=== PATIENT | male | born 1995 | race Caucasian/White ===

== ENCOUNTER 2023-07-01 19:30 | Emergency (ER) | payer BC ==
[2023-07-01 19:53] VITALS: TEMP 98.8
--- NOTE | 2023-07-01 20:21 | ERPHSYRPT ---
- History of Present Illness Time Seen by Provider: 07/01/23 20:21 Historian: patient Exam Limitations: no limitations Patient Subjective Stated Complaint: pt states that he began to have chest pain at 7. pt states that he has anxiety and doesn't know if it is that or not Triage Nursing Assessment: pt ambulated into the er; pt is axo x4; c/o chest pain; pt states 1/10 pain to chest; clear apical heart tone present with mumur present; clear lung sounds in all lobes; strong daniel radial pulses; strong daniel pedal pulse; no edema present; vitals wnl; no respiratory distress present; vitals wnl Physician History: The patient, with a history of thyroid issues and anxiety, presents with chest discomfort that started around 7pm while riding a buggy around the yard with his kids. The discomfort is located on the sternum and was tender to touch earlier. The patient also reports increased anxiety over the past month, which he attributes to recent family stress and possibly his thyroid issues. He had stopped his thyroid medication for a period but has been back on it for about four weeks. He is due for a thyroid level check the week after . In addition to his thyroid issues, the patient has a history of anxiety for which he was previously on Zoloft and Buspar. He stopped these medications because he felt emotionally flat and was not experiencing sen. He has tried Lexapro in the past but had similar issues. The patient also mentions a past incident of electrocution about a year and a half ago, which caused a temporary arrhythmia and elevated muscle enzymes in his blood. He also has a congenital heart murmur. Timing/Duration: today Activities at Onset: rest Quality: sharpness, stabbing Location: substernal Chest Pain Radiation: no radiation Severity of Pain-Max: severe Severity of Pain-Current: mild Modifying Factors: Improves With: nothing. Worsens With: palpation Associated Symptoms: palpitations, No nausea, No vomiting, No shortness of breath, No cough, No hurts to breathe, No fever Prior Chest Pain/Cardiac Workup: no prior chest pain Nitro Today/Relief: no nitro taken today Aspirin Treatment Today: no aspirin today Allergies/Adverse Reactions: No Known Drug Allergies Allergy (Unverified 07/01/23 19:36) Home Medications: Levothyroxine Sodium [Unithroid] 75 mcg PO DAILY 07/01/23 [History] Hx Tetanus, Diphtheria Vaccination/Date Given: Yes Hx Influenza Vaccination/Date Given: No Hx Pneumococcal Vaccination/Date Given: No Immunizations Up to Date: No Travel Risk - International Travel Have you traveled outside of the country in past 3 weeks: No - Emerging Infectious Disease Are you exhibiting symptoms associated with any current EIDs: No - Review of Systems All Other Systems: Reviewed and Negative - Past Medical History Pertinent Past Medical History: Yes Endocrine Medical History: Hypothyroidism Psycho-Social History: Anxiety - Past Surgical History Past Surgical History: No - Social History Smoking Status: Current every day smoker Exposure to second hand smoke: Yes Drug Use: none - Nursing Vital Signs Nursing Vital Signs: Initial Vital Signs Temperature 98.8 F 07/01/23 19:35 Pulse Rate 93 H 07/01/23 19:35 Respiratory Rate 20 07/01/23 19:35 Blood Pressure 136/83 07/01/23 19:35 O2 Sat by Pulse Oximetry 100 07/01/23 19:35 Pain Scale Pain Intensity 1 - Physical Exam General Appearance: no apparent distress, anxiety Eye Exam: eyes nml inspection Ears, Nose, Throat Exam: normal ENT inspection Neck Exam: normal inspection, non-tender, full range of motion Respiratory Exam: normal breath sounds, lungs clear, airway intact, No chest tenderness, No respiratory distress Cardiovascular Exam: regular rate/rhythm, murmur, capillary refill <2 sec Back Exam: normal inspection, No CVA tenderness, No vertebral tenderness, No point tenderness Extremity Exam: normal inspection, No swelling Neurologic Exam: alert, oriented x 3, cooperative Skin Exam: normal color, warm, dry, No rash SpO2 Interpretation: normal SpO2: 100 O2 Delivery: Room Air - Course Nursing assessment & vital signs reviewed: Yes EKG Interpreted by Me: RATE (94), Sinus Rhythm, NORMAL AXIS, NORMAL INTERVALS, NORMAL QRS - Radiology Exams Chest X-ray Interpretation: Interpreted by me, Negative Ordered Tests: Active Orders 24 hr Category Date Time Status CHEST 1 VIEW (PORTABLE) Stat Exams 07/01/23 20:35 Taken CBC W DIFF Stat Lab 07/01/23 20:50 Completed CMP Stat Lab 07/01/23 20:50 Completed D-DIMER QUANTITATIVE Stat Lab 07/01/23 20:50 Completed Erythrocyte Sedimentation Rate Stat Lab 07/01/23 20:50 Completed FREE TRIODOTHYRONINE Stat Lab 07/01/23 21:50 Completed Lactic Acid Stat Lab 07/01/23 20:34 Completed MAGNESIUM Stat Lab 07/01/23 20:50 Completed TROPONIN Q4H Lab 07/01/23 20:50 Completed TSH [TSH, 3RD Generation] Stat Lab 07/01/23 20:50 Completed Medication Summary Discontinued Medications Generic Name Dose Route Start Last Admin Trade Name Buddy PRN Reason Stop Dose Admin Alprazolam 1 mg 07/01/23 20:45 07/01/23 20:47 Alprazolam 0.5 Mg Tablet PO 07/01/23 20:46 1 mg STAT ONE Administration Alprazolam Confirm 07/01/23 20:46 Alprazolam 0.5 Mg Tablet Administered 07/01/23 20:47 Dose 1 mg .ROUTE .STK-MED ONE Bupropion HCl 150 mg 07/01/23 20:36 07/01/23 20:59 Bupropion Hcl 150 Mg Tablet Xl PO 07/01/23 20:37 150 mg ONCE ONE Administration Lorazepam 1 mg 07/01/23 20:34 07/01/23 20:38 Lorazepam 2 Mg/1 Ml 2 Mg Vial IV 07/01/23 20:35 Not Given STAT ONE Lab/Rad Data: Laboratory Result Diagrams 07/01/23 20:50 07/01/23 20:50 Laboratory Results 07/01/23 07/01/23 07/01/23 Range/Units 21:50 20:50 20:50 WBC (4.0-10.5) x10^3/uL RBC (4.1-5.6) x10^6/uL Hgb (12.5-18.0) g/dL Hct (42-50) % MCV (78-100) fL MCH (26-32) pg MCHC (32-36) g/dL RDW (11.5-14.0) % Plt Count (150-450) x10^3/uL MPV (7.5-11.0) fL Gran % (36.0-66.0) % Immature Gran % (Auto) (0.00-0.4) % Nucleat RBC Rel Count (0.00-0.1) % Eos # (Auto) (0-0.5) x10^3/uL Immature Gran # (Auto) (0.00-0.03) x10^3u/L Absolute Lymphs (auto) (1.0-4.6) x10^3/uL Absolute Monos (auto) (0.0-1.3) x10^3/uL Absolute Nucleated RBC (0.00-0.01) x10^3u/L Lymphocytes % (24.0-44.0) % Monocytes % (0.0-12.0) % Eosinophils % (0.00-5.0) % Basophils % (0.0-0.4) % Absolute Granulocytes (1.4-6.9) x10^3/uL Basophils # (0-0.4) x10^3/uL ESR (0-15) mm/hr D-Dimer (0.0-0.50) mg/L Sodium (135-145) mmol/L Potassium (3.5-5.1) mmol/L Chloride (98-107) mmol/L Carbon Dioxide (22-30) mmol/L Anion Gap (5-15) MEQ/L BUN (9-20) mg/dL Creatinine (0.66-1.25) mg/dL Estimated GFR ML/MIN Glucose (74-106) mg/dL Lactic Acid (0.4-2.0) Calcium (8.4-10.2) mg/dL Magnesium (1.6-2.3) mg/dL Total Bilirubin (0.2-1.3) mg/dL AST (17-59) U/L ALT (0-50) U/L Alkaline Phosphatase (38-126) U/L Troponin I < 0.012 (0.000-0.033) ng/mL Serum Total Protein (6.3-8.2) g/dL Albumin (3.5-5.0) g/dL Free T3 pg/mL 4.32 (2.77-5.27) pg/mL TSH 3rd Generation 0.024 L (0.470-4.680) mIU/L 07/01/23 07/01/23 07/01/23 Range/Units 20:50 20:50 20:50 WBC 9.3 (4.0-10.5) x10^3/uL RBC 5.09 (4.1-5.6) x10^6/uL Hgb 15.4 (12.5-18.0) g/dL Hct 44.8 (42-50) % MCV 88.0 (78-100) fL MCH 30.3 (26-32) pg MCHC 34.4 (32-36) g/dL RDW 12.0 (11.5-14.0) % Plt Count 282 (150-450) x10^3/uL MPV 10.7 (7.5-11.0) fL Gran % 71.1 H (36.0-66.0) % Immature Gran % (Auto) 0.2 (0.00-0.4) % Nucleat RBC Rel Count 0.0 (0.00-0.1) % Eos # (Auto) 0.10 (0-0.5) x10^3/uL Immature Gran # (Auto) 0.02 (0.00-0.03) x10^3u/L Absolute Lymphs (auto) 2.02 (1.0-4.6) x10^3/uL Absolute Monos (auto) 0.52 (0.0-1.3) x10^3/uL Absolute Nucleated RBC 0.00 (0.00-0.01) x10^3u/L Lymphocytes % 21.6 L (24.0-44.0) % Monocytes % 5.6 (0.0-12.0) % Eosinophils % 1.1 (0.00-5.0) % Basophils % 0.4 (0.0-0.4) % Absolute Granulocytes 6.64 (1.4-6.9) x10^3/uL Basophils # 0.04 (0-0.4) x10^3/uL ESR 10 (0-15) mm/hr D-Dimer 0.22 (0.0-0.50) mg/L Sodium 140 (135-145) mmol/L Potassium 3.7 (3.5-5.1) mmol/L Chloride 108 H (98-107) mmol/L Carbon Dioxide 23 (22-30) mmol/L Anion Gap 13.0 (5-15) MEQ/L BUN 8 L (9-20) mg/dL Creatinine 0.87 (0.66-1.25) mg/dL Estimated GFR 121.3 ML/MIN Glucose 113 H (74-106) mg/dL Lactic Acid (0.4-2.0) Calcium 9.4 (8.4-10.2) mg/dL Magnesium 2.0 (1.6-2.3) mg/dL Total Bilirubin 0.60 (0.2-1.3) mg/dL AST 31 (17-59) U/L ALT 26 (0-50) U/L Alkaline Phosphatase 61 (38-126) U/L Troponin I (0.000-0.033) ng/mL Serum Total Protein 8.3 H (6.3-8.2) g/dL Albumin 4.9 (3.5-5.0) g/dL Free T3 pg/mL (2.77-5.27) pg/mL TSH 3rd Generation (0.470-4.680) mIU/L 07/01/23 Range/Units 20:34 WBC (4.0-10.5) x10^3/uL RBC (4.1-5.6) x10^6/uL Hgb (12.5-18.0) g/dL Hct (42-50) % MCV (78-100) fL MCH (26-32) pg MCHC (32-36) g/dL RDW (11.5-14.0) % Plt Count (150-450) x10^3/uL MPV (7.5-11.0) fL Gran % (36.0-66.0) % Immature Gran % (Auto) (0.00-0.4) % Nucleat RBC Rel Count (0.00-0.1) % Eos # (Auto) (0-0.5) x10^3/uL Immature Gran # (Auto) (0.00-0.03) x10^3u/L Absolute Lymphs (auto) (1.0-4.6) x10^3/uL Absolute Monos (auto) (0.0-1.3) x10^3/uL Absolute Nucleated RBC (0.00-0.01) x10^3u/L Lymphocytes % (24.0-44.0) % Monocytes % (0.0-12.0) % Eosinophils % (0.00-5.0) % Basophils % (0.0-0.4) % Absolute Granulocytes (1.4-6.9) x10^3/uL Basophils # (0-0.4) x10^3/uL ESR (0-15) mm/hr D-Dimer (0.0-0.50) mg/L Sodium (135-145) mmol/L Potassium (3.5-5.1) mmol/L Chloride (98-107) mmol/L Carbon Dioxide (22-30) mmol/L Anion Gap (5-15) MEQ/L BUN (9-20) mg/dL Creatinine (0.66-1.25) mg/dL Estimated GFR ML/MIN Glucose (74-106) mg/dL Lactic Acid 1.5 (0.4-2.0) Calcium (8.4-10.2) mg/dL Magnesium (1.6-2.3) mg/dL Total Bilirubin (0.2-1.3) mg/dL AST (17-59) U/L ALT (0-50) U/L Alkaline Phosphatase (38-126) U/L Troponin I (0.000-0.033) ng/mL Serum Total Protein (6.3-8.2) g/dL Albumin (3.5-5.0) g/dL Free T3 pg/mL (2.77-5.27) pg/mL TSH 3rd Generation (0.470-4.680) mIU/L - Progress Progress: improved Air Movement: good Progress Note: Vital signs within normal limits. Chest x-ray normal. Labs showed a TSH of 0.024 and a T3 of 4.3. EKG, troponin, D-dimer, CBC, CMP all within normal limits. Patient given 1 mg Xanax which greatly improved his symptoms. Patient also started on Wellbutrin 150 mg extended release today. Patient advised to decrease his dose of levothyroxine 50 mcg daily and schedule follow-up with his nurse practitioner for follow-up lab evaluation. I will send in Wellbutrin to the pharmacy for him to start taking on a daily basis. I will also send hydr oxyzine to be used as needed for anxiety. Blood Culture(s) Obtained: No Antibiotics given: No Counseled pt/family regarding: lab results, diagnosis, need for follow-up, rad results Medical Desision Making - Diagnostic Testing Diagnostic test were ordered, analyzed, and reviewed by me: Yes Radiological Interpretation: Interpreted by me - Risk of complications The pt has a mod risk of morbidity or mortality based on: Need for prescription drug management - Departure Departure Disposition: Home Clinical Impression: Hyperthyroidism determined by thyroid function test, Anxiety Condition: Good Critical Care Time: No Referrals: CARLOS JOHN MD [Primary Care Provider] - Follow up/PCP as directed BOB BERNARD NP [NON-STAFF PHY W/O PRIVILEGES] - Follow up/PCP as directed Instructions: Hyperthyroidism (overactive thyroid) Prescriptions: Levothyroxine Sodium 25 Mcg [Synthroid 25 Mcg] 50 mcg PO DAILY 30 Days #60 tablet hydrOXYzine pamoate [Vistaril] 25 mg PO TID PRN 30 Days #90 cap PRN Reason: Anxiety Bupropion HCl Xl 150 mg [Wellbutrin XL 150 MG] 150 mg PO DAILY #30 tablet
[2023-07-01] MEDS: Ativan 2 MG/1 ML VIAL IV ONE (20:38)
[2023-07-01] MEDS ORDERED: xanAX 0.5 MG ONE (20:46)
[2023-07-01] MEDS: xanAX 0.5 MG PO ONE (20:47)
[2023-07-01 20:57] LABS: Absolute Neutrophil Ct (ANC) 6.64 x10^3/uL (1.4-6.9); BASOPHIL % 0.4 % (0.0-0.4); Basophil (Absolute #) 0.04 x10^3/uL (0-0.4); Eosinophil % 1.1 % (0.00-5.0); Hematocrit 44.8 % (42-50); Hemoglobin 15.4 g/dL (12.5-18.0); IMMATURE GRAN # 0.02 x10^3u/L (0.00-0.03); IMMATURE GRAN % 0.2 % (0.00-0.4); Lymphocyte (Absolute #) 2.02 x10^3/uL (1.0-4.6); Lymphocytes % 21.6 % (24.0-44.0); Mean Corpuscular Hemoglobin 30.3 pg (26-32); Mean Corpuscular Hgb Concent. 34.4 g/dL (32-36); Mean Platelet Volume 10.7 fL (7.5-11.0); Monocyte (Absolute #) 0.52 x10^3/uL (0.0-1.3); Monocytes % 5.6 % (0.0-12.0); Neutrophil % 71.1 % (36.0-66.0); Platelet Count 282 x10^3/uL (150-450); Red Blood Count 5.09 x10^6/uL (4.1-5.6); White Blood Count 9.3 x10^3/uL (4.0-10.5)
[2023-07-01] MEDS: Wellbutrin XL 150 MG PO ONE (20:59)
[2023-07-01 21:03] VITALS: RESP 18
[2023-07-01 21:12] LABS: ALBUMIN 4.9 g/dL (3.5-5.0); BILIRUBIN,TOTAL 0.6 mg/dL (0.2-1.3); Calcium 9.4 mg/dL (8.4-10.2); Creatinine 1 0.87 mg/dL (0.66-1.25); EST GLOMERULAR FILTRATION RATE 121.3 ML/MIN; Potassium 3.7 mmol/L (3.5-5.1); Total Protein 8.3 g/dL (6.3-8.2)
[2023-07-01 21:29] LABS: Erythrocyte Sedimentation Rate 10 mm/hr (0-15)
[2023-07-01 22:13] VITALS: BP 141/86; PULSE 79
[2023-07-01 22:21] VITALS: O2SAT 100
--- NOTE | 2023-07-02 06:47 | XRAY ---
Indication: Chest pain. Comparison: March 23, 2006 Portable apical lordotic chest demonstrates normal heart, lungs, and bony thorax.
== END 2023-07-01 22:30 | disposition home or self-care (01) ==
LOC: ED 19:30
DX: E05.90 Thyrotoxicosis, unspecified without thyrotoxic crisis or storm (principal); F41.9 Anxiety disorder, unspecified; R07.9 Chest pain, unspecified; Z79.899 Other long term (current) drug therapy; Z72.0 Tobacco use
CPT/HCPCS: 36415; 71045; 80053; 83605; 83735; 84443; 84481; 84484; 85025; 85379; 85652; 99283; A9270-GY

== ENCOUNTER 2023-09-17 01:55 | Emergency (ER) | payer BC ==
--- NOTE | 2023-09-17 02:08 | ERPHSYRPT ---
- History of Present Illness Time Seen by Provider: 09/17/23 02:07 Source: patient, family Exam Limitations: no limitations Physician History: pt has recurrent left ear infections. Amoxcil and augmentin have failed. Twin brother is allergic to opioids and cephalosporins. No ear trauma or hx of swimming. Mom is in ER as independent source of Hx. Discussed risks/benefits of testing/Tx including lab tests, cultures, and AB, steroids, local ear drops , and lachelle meds NSAID and they will take the toradol, decadron, and Z joshua and local auralgen but wish to hold off on additional testing and f/u ENT. the neck is supple and nontender. the face is nontender. neuro exam and mental status are normal.Pharynx is clear and swallowing OK - no swelling. . No meningismus. No rashes. chest clear without wheezes or stridor. Timing/Duration: abrupt onset, days Severity: moderate ENT Location: ear (L) Prearrival Treatment: over the counter meds, prescription meds Associated Symptoms: ear pain (L), jaw pain, nasal congestion/drainage, No neck pain, No difficulty swallowing, No voice change Allergies/Adverse Reactions: No Known Drug Allergies Allergy (Verified 09/17/23 02:05) Home Medications: Buspirone HCl 5 mg [Buspar 5 mg] 10 mg PO BID 09/17/23 [History] Hx Tetanus, Diphtheria Vaccination/Date Given: Yes Hx Influenza Vaccination/Date Given: No Hx Pneumococcal Vaccination/Date Given: No Travel Risk - Emerging Infectious Disease Are you exhibiting symptoms associated with any current EIDs: No - Review of Systems Constitutional: No Fever, No Chills Eyes: No Symptoms Ears, Nose, & Throat: No Symptoms Respiratory: No Cough, No Dyspnea Cardiac: No Chest Pain, No Edema, No Syncope Abdominal/Gastrointestinal: No Abdominal Pain, No Nausea, No Vomiting, No Diarr hea Genitourinary Symptoms: No Dysuria Musculoskeletal: No Back Pain, No Neck Pain Skin: No Rash Neurological: No Dizziness, No Focal Weakness, No Sensory Changes Psychological: No Symptoms Endocrine: No Symptoms Hematologic/Lymphatic: No Symptoms Immunological/Allergic: No Symptoms All Other Systems: Reviewed and Negative - Past Medical History Pertinent Past Medical History: Yes Endocrine Medical History: Hypothyroidism Psycho-Social History: Anxiety - Past Surgical History Past Surgical History: No - Social History Smoking Status: Current every day smoker Exposure to second hand smoke: Yes Drug Use: none - Social Determinants of Health Will the patient participate in the screening: Yes Do you worry about a steady place to live?: No In the past 12 months,have you had to go without utilities?: No Transportation Issues: No Has anyone in your support network made you feel unsafe?: No Have you or anyone in your house had to go without enough: No - Nursing Vital Signs Nursing Vital Signs: Initial Vital Signs Temperature 97.5 F 09/17/23 02:08 Pulse Rate 73 09/17/23 02:08 Respiratory Rate 18 09/17/23 02:08 Blood Pressure 144/93 09/17/23 02:08 O2 Sat by Pulse Oximetry 100 09/17/23 02:08 Pain Scale Pain Intensity 8 - Physical Exam General Appearance: no apparent distress, alert Eye Exam: bilateral eye: normal inspection, PERRL, EOMI Ear Exam: right ear: canal normal, TM normal, left ear: TM red, bilateral ear: auricle normal Nasal Exam: normal inspection Throat Exam: pharynx normal, moist mucus membranes, No dental tenderness, No excessive drooling, No mandibular swelling, No maxillary swelling, No pharynx swelling, No tongue swollen, No tonsillar exudate, No voice changes Neck Exam: normal inspection, non-tender, supple, full range of motion Cardiovascular/Respiratory Exam: chest non-tender, normal breath sounds, regular rate/rhythm, heart sounds normal Abdominal Exam: non-tender, soft Neurologic Exam: alert, oriented x 3, cooperative, vessel traffic officer II-XII nml as tested, normal mood/affect, nml cerebellar function, nml station & gait, sensation nml, No motor deficits Skin Exam: normal color, warm, dry SpO2 Interpretation: normal O2 Delivery: Room Air - Course Nursing assessment & vital signs reviewed: Yes Ordered Tests: Medication Summary Discontinued Medications Generic Name Dose Route Start Last Admin Trade Name Buddy PRN Reason Stop Dose Admin Azithromycin 500 mg 09/17/23 02:38 09/17/23 02:58 Azithromycin 250 Mg Tablet PO 09/17/23 02:39 500 mg STAT ONE Administration Azithromycin Confirm 09/17/23 02:56 Azithromycin 250 Mg Tablet Administered 09/17/23 02:57 Dose 500 mg .ROUTE .STK-MED ONE Benzocaine/Butamben/Tetracaine HCl 1 spray 09/17/23 02:49 09/17/23 02:58 Tetracaine/Benzocaine/Butamben 1 [place] TP 09/17/23 02:50 1 spray ONCE ONE Administration Benzocaine/Butamben/Tetracaine HCl Confirm 09/17/23 02:56 Tetracaine/Benzocaine/Butamben 1 [place] Administered 09/17/23 02:57 Dose 1 spray .ROUTE .STK-MED ONE Dexamethasone Sodium Phosphate 10 mg 09/17/23 02:41 09/17/23 02:58 Dexamethasone Sod Phosphate 10 Mg/Ml IM 09/17/23 02:42 10 mg STAT ONE Administration Dexamethasone Sodium Phosphate Confirm 09/17/23 02:56 Dexamethasone Sod Phosphate 10 Mg/Ml Administered 09/17/23 02:57 Dose 10 mg .ROUTE .STK-MED ONE Ketorolac Tromethamine 60 mg 09/17/23 02:40 09/17/23 02:58 Ketorolac Tromethamine 30 Mg/Ml Inj IM 09/17/23 02:41 60 mg STAT ONE Administration Ketorolac Tromethamine Confirm 09/17/23 02:56 Ketorolac Tromethamine 30 Mg/Ml Inj Administered 09/17/23 02:57 Dose 60 mg .ROUTE .STK-MED ONE - Progress Progress: improved, re-examined Progress Note: 09/17/23 03:17 pt had relief after ear drops. He no longer takes the hydroxyzine so that interaction with azithramycin does not ocur any longer for him. Counseled pt/family regarding: diagnosis, need for follow-up Medical Desision Making - Independent Historian Additional History obtained from: Mother - Discussion of managment Reviewed:: Test results, Need for additional workup Agreed on:: Treatment plan, need for follow-up - Diagnostic Testing Diagnostic test were ordered, analyzed, and reviewed by me: No - Risk of complications The pt has a mod risk of morbidity or mortality based on: Need for prescription drug management - Departure Departure Disposition: Home Clinical Impression: persistent LOM Condition: Good Critical Care Time: No Referrals: CARLOS JOHN MD [Primary Care Provider] - Follow up/PCP as directed Instructions: Ear infections in adults Additional Instructions: Make an appointment to see an ENT - even if you get better and it goes away. You have a chronic ear problem that needs that kind of expertise to insure complete resolution. Return meantime if not improving, vomiting, pain not resolving, trouble or pain with swallowing, short of breath, or other concerns. when you get the prescription for the z pack only take one tablet daily for the next 4 days. you can ask the pharmacist for auralgen or other benzocaine containing ear drop if needed. Prescriptions: Azithromycin 250 mg [Zithromax 250 MG TABLET] 250 mg PO ZPACK #6 tablet
[2023-09-17 02:17] VITALS: TEMP 97.5
[2023-09-17] MEDS ORDERED: DECADRON 10MG INJ. ONE (02:56)
[2023-09-17] MEDS ORDERED: TORAdol 30 mg Injection ONE (02:56)
[2023-09-17] MEDS ORDERED: Zithromax 250 MG TABLET ONE (02:56)
[2023-09-17] MEDS ORDERED: CETACAINE SPRAY ONE (02:56)
[2023-09-17] MEDS: Zithromax 250 MG TABLET PO ONE (02:58)
[2023-09-17] MEDS: TORAdol 30 mg Injection IM ONE (02:58)
[2023-09-17] MEDS: DECADRON 10MG INJ. IM ONE (02:58)
[2023-09-17] MEDS: CETACAINE SPRAY TP ONE (02:58)
[2023-09-17 03:12] VITALS: O2SAT 98
[2023-09-17 03:31] VITALS: BP 139/89; PULSE 85; RESP 14
== END 2023-09-17 03:31 | disposition home or self-care (01) ==
LOC: ED 01:55
DX: H66.92 Otitis media, unspecified, left ear (principal); H92.02 Otalgia, left ear; Z79.899 Other long term (current) drug therapy; Z72.0 Tobacco use
CPT/HCPCS: 96372; 99283; J1100; J1885; A9270-GY

== ENCOUNTER 2023-12-27 19:03 | Emergency (ER) | payer BC ==
[2023-12-27 20:21] VITALS: TEMP 98.4
--- NOTE | 2023-12-27 20:27 | ERPHSYRPT ---
- History of Present Illness Time Seen by Provider: 12/27/23 20:27 Source: patient Exam Limitations: no limitations Patient Subjective Stated Complaint: right shoulder and chest pain; and numbess in right side of face, right ear, and right arm Triage Nursing Assessment: Pt ambulated to room without difficulty. Pt A&O X 3. Skin color WNL for race. Lung sounds clear throughout. Heart sounds regular with murmur present. C/o minimal right shoulder pain intermittently w/o injury. ROM intact. Peripheral pulses present and equal. Physician History: Patient presents to our ED feeling very anxious. Patient has many stressors in his life that he feels are getting to him. Patient also advises that he has a history of hyperactive thyroid. Patient states that he has been very anxious. Associated with this anxiety is a discomfort in his right arm. Patient has been experiencing intermittent tingling at the dorsal aspect of his right hand. No hunter chest pain. No nausea no vomiting. Patient currently on Omnicef and azithromycin for a pneumonia. Patient symptoms are constant. Symptoms have been ongoing for the past day. Symptoms are mild to moderate in intensity. No specific worsening or improving factors. Patient otherwise feels well. He voices no other complaints or concerns at this time. Portions of this note were created with voice recognition technology. There may be grammatical, spelling, punctuation or sound alike errors Timing/Duration: yesterday Severity: moderate Modifying Factors: Improves With: nothing Associated Symptoms: other (Feeling anxious intermittent tingling of the right d orsal hand the past several days) Allergies/Adverse Reactions: No Known Drug Allergies Allergy (Verified 12/27/23 20:01) Home Medications: Buspirone HCl 5 mg [Buspar 5 mg] 10 mg PO BID 09/17/23 [History] ALPRAZolam 0.25 MG [xanAX 0.25 MG] 0.25 mg PO TID 12/27/23 [History] Azithromycin 250 mg PO DAILY 12/27/23 [History] Cefdinir 300 mg PO BID 12/27/23 [History] Non-Formulary Drug [Non-Formulary Item] 1 tab PO BID 12/27/23 [History] Propranolol HCl 10 mg PO TID 12/27/23 [History] Hx Tetanus, Diphtheria Vaccination/Date Given: Yes Hx Influenza Vaccination/Date Given: No Hx Pneumococcal Vaccination/Date Given: No Travel Risk - International Travel Have you traveled outside of the country in past 3 weeks: No - Emerging Infectious Disease Are you exhibiting symptoms associated with any current EIDs: No (testing neg) - Review of Systems Constitutional: No Symptoms, No Fever, No Chills Eyes: No Symptoms Ears, Nose, & Throat: No Symptoms Respiratory: No Symptoms, No Cough, No Dyspnea Cardiac: No Symptoms, No Chest Pain, No Edema, No Syncope Abdominal/Gastrointestinal: No Symptoms, No Abdominal Pain, No Nausea, No Vomiting, No Diarrhea Genitourinary Symptoms: No Symptoms, No Dysuria Musculoskeletal: No Symptoms, No Back Pain, No Neck Pain Skin: No Rash Neurological: No Symptoms, No Dizziness, No Focal Weakness, No Sensory Changes Psychological: No Symptoms Endocrine: No Symptoms Hematologic/Lymphatic: No Symptoms Immunological/Allergic: No Symptoms All Other Systems: Reviewed and Negative - Past Medical History Pertinent Past Medical History: Yes Neurological History: No Pertinent History ENT History: No Pertinent History Cardiac History: Other Respiratory History: No Pertinent History Endocrine Medical History: Hyperthyroidism, Hypothyroidism Musculoskeletal History: No Pertinent History GI Medical History: No Pertinent History History: No Pertinent History Psycho-Social History: Anxiety Male Reproductive Disorders: No Pertinent History Other Medical History: electrocuted in 2021 - Past Surgical History Past Surgical History: No - Social History Smoking Status: Former smoker Exposure to second hand smoke: Yes Drug Use: none - Social Determinants of Health Will the patient participate in the screening: Declined to provide - Nursing Vital Signs Nursing Vital Signs: Initial Vital Signs Pulse Rate 82 12/27/23 20:00 Respiratory Rate 14 12/27/23 20:00 Blood Pressure 151/86 12/27/23 20:00 O2 Sat by Pulse Oximetry 97 12/27/23 20:00 Pain Scale Pain Intensity 2 - Physical Exam General Appearance: no apparent distress, alert Eye Exam: PERRL/EOMI, eyes nml inspection Ears, Nose, Throat Exam: normal ENT inspection, TMs normal, pharynx normal, moist mucous membranes Neck Exam: normal inspection, non-tender, supple, full range of motion Respiratory Exam: normal breath sounds, lungs clear, No respiratory distress Cardiovascular Exam: regular rate/rhythm, normal heart sounds, normal peripheral pulses Gastrointestinal/Abdomen Exam: soft, normal bowel sounds, No tenderness, No mass Back Exam: normal inspection, normal range of motion, No CVA tenderness, No vertebral tenderness Extremity Exam: normal inspection, normal range of motion, pelvis stable Neurologic Exam: alert, oriented x 3, cooperative, normal mood/affect, nml cerebellar function, nml station & gait, sensation nml, No motor deficits Skin Exam: normal color, warm, dry, No rash Lymphatic Exam: No adenopathy SpO2 Interpretation: normal SpO2: 96 O2 Delivery: Room Air - Course Nursing assessment & vital signs reviewed: Yes EKG Interpreted by Me: RATE (87), Sinus Rhythm, NORMAL AXIS, NORMAL INTERVALS, NORMAL QRS - Radiology Exams Chest X-ray Interpretation: Interpreted by me (Right lower lobe pneumonia) - CT Exams Chest CT Interpretation: Tele-radiologist Report (Right lower lobe left upper lobe atypical pneumonia) Ordered Tests: Active Orders 24 hr Category Date Time Status Strategic Planning Consultant STAT Care 12/27/23 20:29 Active EKG-ER Only STAT Care 12/27/23 20:29 Active IV Insertion STAT Care 12/27/23 20:29 Active Pulse Oximetry (ED) STAT Care 12/27/23 20:29 Active CHEST 1 VIEW (PORTABLE) Stat Exams 12/27/23 20:29 Taken CHEST WITH CONTRAST [CT] Stat Exams 12/27/23 21:07 Completed CBC W DIFF Stat Lab 12/27/23 20:00 Completed CMP Stat Lab 12/27/23 20:00 Completed D-DIMER QUANTITATIVE Stat Lab 12/27/23 20:00 Completed ETHYL ALCOHOL Stat Lab 12/27/23 20:00 Completed NT PRO BNPII Stat Lab 12/27/23 20:00 Completed TROPONIN Q4H Lab 12/27/23 20:00 Completed TROPONIN Q4H Lab 12/27/23 23:22 Completed TROPONIN Q4H Lab 12/28/23 04:30 Ordered TSH [TSH, 3RD Generation] Stat Lab 12/27/23 20:00 Completed UA W/RFX UR CULTURE Stat Lab 12/27/23 21:35 Completed Urine Triage Profile Stat Lab 12/27/23 21:35 Completed Medication Summary Discontinued Medications Generic Name Dose Route Start Last Admin Trade Name Freq PRN Reason Stop Dose Admin Hydrocodone Bitart/Acetaminophen 1 tab 12/28/23 00:09 12/28/23 00:12 Hydrocodone/Apap 5/325 1 Tab Tablet PO 12/28/23 00:10 Not Given STAT ONE Hydrocodone Bitart/Acetaminophen 5 ml 12/28/23 00:11 Hydrocodone/Acetaminophen 5 Ml Udcup PO 12/28/23 00:12 STAT STA Lab/Rad Data: Laboratory Result Diagrams 12/27/23 20:00 12/27/23 20:00 Laboratory Results 12/27/23 12/27/23 12/27/23 Range/Units 23:22 21:35 21:35 WBC (4.23-9.07) x10^3/uL RBC (4.63-6.08) x10^6/uL Hgb (13.7-17.5) g/dL Hct (40.1-51.0) % MCV (79.0-92.2) fL MCH (25.7-32.2) pg MCHC (32.3-36.5) g/dL RDW (11.6-14.4) % Plt Count (163-337) x10^3/uL MPV (9.4-12.4) fL Gran % (34.0-67.9) % Immature Gran % (Auto) (0.001-0.429) % Nucleat RBC Rel Count (0.00-0.2) % Eos # (Auto) (0.04-0.54) x10^3/uL Immature Gran # (Auto) (0.001-0.031) x10^3u/L Absolute Lymphs (auto) (1.32-3.57) x10^3/uL Absolute Monos (auto) (0.30-0.82) x10^3/uL Absolute Nucleated RBC (0.00-0.012) x10^3u/L Lymphocytes % (21.8-53.1) % Monocytes % (5.3-12.2) % Eosinophils % (0.8-7.0) % Basophils % (0.2-1.2) % Absolute Granulocytes (1.78-5.38) x10^3/uL Basophils # (0.01-0.08) x10^3/uL D-Dimer (0.0-0.50) mg/L Sodium (135-145) mmol/L Potassium (3.5-5.1) mmol/L Chloride (98-107) mmol/L Carbon Dioxide (22-30) mmol/L Anion Gap (5-15) MEQ/L BUN (9-20) mg/dL Creatinine (0.66-1.25) mg/dL Estimated GFR ML/MIN Glucose (74-106) mg/dL Calcium (8.4-10.2) mg/dL Total Bilirubin (0.2-1.3) mg/dL AST (17-59) U/L ALT (0-50) U/L Alkaline Phosphatase (38-126) U/L Troponin I < 0.012 (0.000-0.033) ng/mL NT-Pro-B Natriuret Pep (<300) pg/mL Serum Total Protein (6.3-8.2) g/dL Albumin (3.5-5.0) g/dL TSH 3rd Generation (0.470-4.680) mIU/L Urine Color Yellow (Yellow) Urine Appearance Cloudy A (Clear) Urine pH 8.5 A (4.6-8.0) Ur Specific [place] 1.020 (1.005-1.030) Urine Protein Trace A (Negative) Urine Glucose (UA) Negative (Negative) mg/dL Urine Ketones Negative (Negative) Urine Blood Negative (Negative) Urine Nitrite Negative (Negative) Urine Bilirubin Negative (Negative) Urine Urobilinogen 0.2 (0.2) mg/dL Ur Leukocyte Esterase Negative (Negative) U Hyaline Cast (Auto) NONE SEEN (0-2) /LPF Urine Microscopic RBC 0-2 (0-5) /HPF Urine Microscopic WBC 0-2 (0-5) /HPF Ur Epithelial Cells None Seen (None Seen) /HPF Urine Bacteria None Seen (None Seen) /HPF Urine Culture Reflexed NO (NO) Urine Opiates Level NEGATIVE (NEGATIVE) Ur Methadone NEGATIVE (NEGATIVE) Urine Barbiturates NEGATIVE (NEGATIVE) Ur Phencyclidine (PCP) NEGATIVE (NEGATIVE) Urine Amphetamine NEGATIVE (NEGATIVE) U Benzodiazepine Level NEGATIVE (NEGATIVE) Urine Cocaine NEGATIVE (NEGATIVE) Urine Marijuana (THC) NEGATIVE (NEGATIVE) Ethyl Alcohol (0-10) mg/dL 12/27/23 12/27/23 12/27/23 Range/Units 20:00 20:00 20:00 WBC (4.23-9.07) x10^3/uL RBC (4.63-6.08) x10^6/uL Hgb (13.7-17.5) g/dL Hct (40.1-51.0) % MCV (79.0-92.2) fL MCH (25.7-32.2) pg MCHC (32.3-36.5) g/dL RDW (11.6-14.4) % Plt Count (163-337) x10^3/uL MPV (9.4-12.4) fL Gran % (34.0-67.9) % Immature Gran % (Auto) (0.001-0.429) % Nucleat RBC Rel Count (0.00-0.2) % Eos # (Auto) (0.04-0.54) x10^3/uL Immature Gran # (Auto) (0.001-0.031) x10^3u/L Absolute Lymphs (auto) (1.32-3.57) x10^3/uL Absolute Monos (auto) (0.30-0.82) x10^3/uL Absolute Nucleated RBC (0.00-0.012) x10^3u/L Lymphocytes % (21.8-53.1) % Monocytes % (5.3-12.2) % Eosinophils % (0.8-7.0) % Basophils % (0.2-1.2) % Absolute Granulocytes (1.78-5.38) x10^3/uL Basophils # (0.01-0.08) x10^3/uL D-Dimer 1.06 H* (0.0-0.50) mg/L Sodium (135-145) mmol/L Potassium (3.5-5.1) mmol/L Chloride (98-107) mmol/L Carbon Dioxide (22-30) mmol/L Anion Gap (5-15) MEQ/L BUN (9-20) mg/dL Creatinine (0.66-1.25) mg/dL Estimated GFR ML/MIN Glucose (74-106) mg/dL Calcium (8.4-10.2) mg/dL Total Bilirubin (0.2-1.3) mg/dL AST (17-59) U/L ALT (0-50) U/L Alkaline Phosphatase (38-126) U/L Troponin I < 0.012 (0.000-0.033) ng/mL NT-Pro-B Natriuret Pep (<300) pg/mL Serum Total Protein (6.3-8.2) g/dL Albumin (3.5-5.0) g/dL TSH 3rd Generation 0.115 L (0.470-4.680) mIU/L Urine Color (Yellow) Urine Appearance (Clear) Urine pH (4.6-8.0) Ur Specific [place] (1.005-1.030) Urine Protein (Negative) Urine Glucose (UA) (Negative) mg/dL Urine Ketones (Negative) Urine Blood (Negative) Urine Nitrite (Negative) Urine Bilirubin (Negative) Urine Urobilinogen (0.2) mg/dL Ur Leukocyte Esterase (Negative) U Hyaline Cast (Auto) (0-2) /LPF Urine Microscopic RBC (0-5) /HPF Urine Microscopic WBC (0-5) /HPF Ur Epithelial Cells (None Seen) /HPF Urine Bacteria (None Seen) /HPF Urine Culture Reflexed (NO) Urine Opiates Level (NEGATIVE) Ur Methadone (NEGATIVE) Urine Barbiturates (NEGATIVE) Ur Phencyclidine (PCP) (NEGATIVE) Urine Amphetamine (NEGATIVE) U Benzodiazepine Level (NEGATIVE) Urine Cocaine (NEGATIVE) Urine Marijuana (THC) (NEGATIVE) Ethyl Alcohol (0-10) mg/dL 12/27/23 12/27/23 Range/Units 20:00 20:00 WBC 8.6 (4.23-9.07) x10^3/uL RBC 4.61 L (4.63-6.08) x10^6/uL Hgb 14.2 (13.7-17.5) g/dL Hct 40.7 (40.1-51.0) % MCV 88.3 (79.0-92.2) fL MCH 30.8 (25.7-32.2) pg MCHC 34.9 (32.3-36.5) g/dL RDW 12.2 (11.6-14.4) % Plt Count 336 (163-337) x10^3/uL MPV 10.5 (9.4-12.4) fL Gran % 55.8 (34.0-67.9) % Immature Gran % (Auto) 0.5 H (0.001-0.429) % Nucleat RBC Rel Count 0.0 (0.00-0.2) % Eos # (Auto) 0.12 (0.04-0.54) x10^3/uL Immature Gran # (Auto) 0.04 H (0.001-0.031) x10^3u/L Absolute Lymphs (auto) 2.92 (1.32-3.57) x10^3/uL Absolute Monos (auto) 0.64 (0.30-0.82) x10^3/uL Absolute Nucleated RBC 0.00 (0.00-0.012) x10^3u/L Lymphocytes % 34.1 (21.8-53.1) % Monocytes % 7.5 (5.3-12.2) % Eosinophils % 1.4 (0.8-7.0) % Basophils % 0.7 (0.2-1.2) % Absolute Granulocytes 4.79 (1.78-5.38) x10^3/uL Basophils # 0.06 (0.01-0.08) x10^3/uL D-Dimer (0.0-0.50) mg/L Sodium 145 (135-145) mmol/L Potassium 3.5 (3.5-5.1) mmol/L Chloride 107 (98-107) mmol/L Carbon Dioxide 28 (22-30) mmol/L Anion Gap 13.7 (5-15) MEQ/L BUN 12 (9-20) mg/dL Creatinine 0.99 (0.66-1.25) mg/dL Estimated GFR 106.4 ML/MIN Glucose 96 (74-106) mg/dL Calcium 9.5 (8.4-10.2) mg/dL Total Bilirubin 0.40 (0.2-1.3) mg/dL AST 42 (17-59) U/L ALT 46 (0-50) U/L Alkaline Phosphatase 75 (38-126) U/L Troponin I (0.000-0.033) ng/mL NT-Pro-B Natriuret Pep 49.7 (<300) pg/mL Serum Total Protein 7.9 (6.3-8.2) g/dL Albumin 4.3 (3.5-5.0) g/dL TSH 3rd Generation (0.470-4.680) mIU/L Urine Color (Yellow) Urine Appearance (Clear) Urine pH (4.6-8.0) Ur Specific [place] (1.005-1.030) Urine Protein (Negative) Urine Glucose (UA) (Negative) mg/dL Urine Ketones (Negative) Urine Blood (Negative) Urine Nitrite (Negative) Urine Bilirubin (Negative) Urine Urobilinogen (0.2) mg/dL Ur Leukocyte Esterase (Negative) U Hyaline Cast (Auto) (0-2) /LPF Urine Microscopic RBC (0-5) /HPF Urine Microscopic WBC (0-5) /HPF Ur Epithelial Cells (None Seen) /HPF Urine Bacteria (None Seen) /HPF Urine Culture Reflexed (NO) Urine Opiates Level (NEGATIVE) Ur Methadone (NEGATIVE) Urine Barbiturates (NEGATIVE) Ur Phencyclidine (PCP) (NEGATIVE) Urine Amphetamine (NEGATIVE) U Benzodiazepine Level (NEGATIVE) Urine Cocaine (NEGATIVE) Urine Marijuana (THC) (NEGATIVE) Ethyl Alcohol < 10 (0-10) mg/dL - Progress Progress: improved Progress Note: 28-year-old male presents to our ED for evaluation of tingling in his right hand. Patient currently on antibiotics for pneumonia. Patient on cefdinir and azithromycin. D-dimer positive. CTA chest negative for PE. Right lower lobe and left upper lobe atypical pneumonia observed. Patient currently on the appropriate antibiotics. Patient is scheduled for primary care follow-up. EKG normal sinus rhythm. No acute or ischemic findings. Troponin negative x 2. Patient TSH is low indicative of hyperthyroidism. Patient currently on methimazole. No indication for further workup. He will follow-up with his primary care doctor tomorrow regarding his hypothyroidism. No indication for further workup at this time. Will discharge home. Patient currently asymptomatic and has no complaints. Mother at bedside. They voiced no other complaints or concerns at this time. Portions of this note were created with voice recognition technology. There may be grammatical, spelling, punctuation or sound alike errors Complexity of problem addressed is moderate acute complicated no critical care time. Complex of data reviewed and analyzed is moderate. Test ordered chest reviewed results analyzed and correlated clinically with history and physical exam. Risk of complication and or risk of morbidity/mortality of patient management is low. Vital stable. Time spent to discharge patient is approximately 15 minutes. Plan of care established for shared decision making. No social determinants of health present to impede follow-up. Portions of this note were created with voice recognition technology. There may be grammatical, spelling, punctuation or sound alike errors 12/28/23 00:29 Counseled pt/family regarding: lab results, diagnosis - Departure Departure Disposition: Home Clinical Impression: Hyperthyroidism, Atypical pneumonia Condition: Stable Critical Care Time: No Referrals: CARLOS JOHN MD [Primary Care Provider] - Follow up/PCP as directed Additional Instructions: Discharge/Care Plan ALEXANDRIA WILLS was seen on 12/28/23 in the Emergency Room. The patient was counseled regarding Diagnosis,Lab results, Imaging studies, need for follow up and when to return to the Emergency Room. Prescriptions given: Discharge Note I have spoken with the patient and/or caregivers. I have explained the patient's condition, diagnosis and treatment plan based on the information available to me at this time. I have answered the patient's and/or caregiver's questions and addressed any concerns. The patient and/or caregivers have as good understanding of the patient's diagnosis, condition and treatment plan as can be expected at this point. The vital signs have been stable. The patient's condition is stable and appropriate for discharge from the emergency department. The patient will pursue further outpatient evaluation with the primary care physician or other designated or consulting physician as outlined in the discharge instructions. The patient and/or caregivers are agreeable to this plan of care and follow-up instructions have been explained in detail. The patient and/or caregivers have received these instruction. The patient/and or caregivers are aware that any significant change in condition or worsening of symptoms should prompt an immediate return to this or the closest emergency department or call 911.
[2023-12-27 20:38] LABS: Absolute Neutrophil Ct (ANC) 4.79 x10^3/uL (1.78-5.38); BASOPHIL % 0.7 % (0.2-1.2); Basophil (Absolute #) 0.06 x10^3/uL (0.01-0.08); Eosinophil % 1.4 % (0.8-7.0); Eosinophil (Absolute #) 0.12 x10^3/uL (0.04-0.54); Hematocrit 40.7 % (40.1-51.0); Hemoglobin 14.2 g/dL (13.7-17.5); IMMATURE GRAN # 0.04 x10^3u/L (0.001-0.031); IMMATURE GRAN % 0.5 % (0.001-0.429); Lymphocyte (Absolute #) 2.92 x10^3/uL (1.32-3.57); Lymphocytes % 34.1 % (21.8-53.1); Mean Cell Volume 88.3 fL (79.0-92.2); Mean Corpuscular Hemoglobin 30.8 pg (25.7-32.2); Mean Corpuscular Hgb Concent. 34.9 g/dL (32.3-36.5); Mean Platelet Volume 10.5 fL (9.4-12.4); Monocyte (Absolute #) 0.64 x10^3/uL (0.30-0.82); Monocytes % 7.5 % (5.3-12.2); Neutrophil % 55.8 % (34.0-67.9); Platelet Count 336 x10^3/uL (163-337); Red Blood Count 4.61 x10^6/uL (4.63-6.08); Red Cell Distribution Width 12.2 % (11.6-14.4); White Blood Count 8.6 x10^3/uL (4.23-9.07)
[2023-12-27 21:00] LABS: ALBUMIN 4.3 g/dL (3.5-5.0); ALKALINE PHOSPHATASE 75 U/L (38-126); ANION GAP 13.7 MEQ/L (5-15); BLOOD UREA NITROGEN 12 mg/dL (9-20); CHLORIDE 107 mmol/L (98-107); Calcium 9.5 mg/dL (8.4-10.2); Carbon Dioxide 28 mmol/L (22-30); Creatinine 1 0.99 mg/dL (0.66-1.25); EST GLOMERULAR FILTRATION RATE 106.4 ML/MIN; ETHYL ALCOHOL < 10 mg/dL (0-10); Glucose 96 mg/dL (74-106); NT PRO BNPII 49.7 pg/mL (<300); Potassium 3.5 mmol/L (3.5-5.1); SGOT/AST 42 U/L (17-59); SGPT/ALT 46 U/L (0-50); SODIUM 145 mmol/L (135-145); Total Protein 7.9 g/dL (6.3-8.2)
[2023-12-27 21:48] LABS: Appearance Cloudy (Clear); Bacteria None Seen /HPF (None Seen); Bilirubin Negative (Negative); Blood Negative (Negative); Epithelial Cells None Seen /HPF (None Seen); Glucose, Urine Negative (Negative); Hyaline Casts NONE SEEN /LPF (0-2); Ketones Negative (Negative); Leukocyte Esterase Negative (Negative); Nitrite Negative (Negative); Ph 8.5 (4.6-8.0); Protein,Urine Dip Trace (Negative); RBC 0-2 /HPF (0-5); Urobilinogen 0.2 mg/dL (0.2); WBC 0-2 /HPF (0-5)
[2023-12-27 21:59] LABS: Amphetamine,Urine NEGATIVE (NEGATIVE); Barbiturate,Urine NEGATIVE (NEGATIVE); Benzodiazepine,Urine NEGATIVE (NEGATIVE); Cocaine,Urine NEGATIVE (NEGATIVE); Methadone,Urine NEGATIVE (NEGATIVE); Opiate,Urine NEGATIVE (NEGATIVE); PCP,Urine NEGATIVE (NEGATIVE); THC,Urine NEGATIVE (NEGATIVE)
--- NOTE | 2023-12-28 00:05 | XRAY ---
CLINICAL HISTORY: pain, + dimer COMPARISON: 12/23/2023 CXR. TECHNIQUE: Contiguous 3.[address] images of the chest were acquired with the administration of intravenous contrast. Coronal and sagittal reconstructions were obtained. One of the following dose reduction techniques was utilized for this exam: Automated exposure control, adjustment of the mA and/or kV according to patient size, and use of iterative reconstruction FINDINGS: Pulmonary Arteries: No evidence of pulmonary embolism. Normal size and course of the pulmonary arteries. Lungs: Scattered patchy tree-in-bud nodularity is appreciated in the right lower lobe laterally and the left upper lobe, predominantly involving the perifissural segment. A few subtle ground glass acinar opacities are also scattered in the aforementioned pulmonary lobes. No evidence of a confluent patch of consolidation or collapse. No interstitial changes. No pleural effusion or pleural thickening. Mediastinum: No mediastinal mass or abnormal lymphadenopathy. Normal appearance of the thymus. Hilar Structures: Normal size and configuration, no enlargement. Heart and Great Vessels: Normal heart size and configuration. No pericardial effusion. Normal caliber and course of the thoracic aorta and other great vessels. No significant atherosclerosis or aneurysm. Normal enhancement of the great vessels post-contrast. Esophagus: Normal course and caliber. No masses or dilatation. Bones: Multilevel Schmorl node formation is seen in the thoracic vertebral bodies. No fractures or lytic/sclerotic lesions. Normal bone density and alignment. No evidence of rib fractures. Chest Wall: No masses or soft tissue abnormalities. Upper Abdomen: Visualized portions of the liver, spleen, pancreas, adrenal glands, and kidneys are normal. No abnormalities are noted in the visualized upper abdominal organs. Thyroid: Normal size and morphology. No nodules or masses. IMPRESSION: 1. No evidence of pulmonary embolism. 2. Right lower lobe and left upper lobe scattered tree-in-bud nodularities and ground glass opacities, suggestive of atypical pulmonary infection. Advise clinical correlation and follow-up. 3. The CT findings suggest a mild interval decrease in the disease process upon comparison with the radiographic findings. Electronically Signed by: Corrie Burton MD. (12/28/2023 00:00:16 EST)
[2023-12-28] MEDS: NORCO 5/325 MG PO ONE (00:12)
[2023-12-28] MEDS ORDERED: HYDROCODONE-ACETAMIN 2.5-108/5 ML SOLUTION ONE (00:14)
[2023-12-28] MEDS: HYDROCODONE-ACETAMIN 2.5-108/5 ML SOLUTION PO STA (00:15)
[2023-12-28 00:56] VITALS: BP 142/86; PULSE 77; RESP 11; O2SAT 95
--- NOTE | 2023-12-28 09:01 | XRAY ---
Indication: Pain. Comparison: December 23, 2023 Portable apical lordotic chest inflated and is now clear. Heart not enlarged. Bony thorax intact. No new/acute findings.
== END 2023-12-28 01:01 | disposition home or self-care (01) ==
LOC: ED 19:03
DX: E05.90 Thyrotoxicosis, unspecified without thyrotoxic crisis or storm (principal); J18.9 Pneumonia, unspecified organism; M79.601 Pain in right arm; Z79.899 Other long term (current) drug therapy
CPT/HCPCS: 36000; 36415; 71045; 71260; 80053; 80307; 81001; 82077; 83880; 84443; 84484; 85025; 85379; 93005; 93041; 94760; 99284; 99285; A9270-GY

== ENCOUNTER 2024-04-18 21:18 | Emergency (ER) | payer BC ==
[2024-04-18 22:06] VITALS: BP 142/92; PULSE 88; RESP 18; TEMP 98.5; O2SAT 99
== END 2024-04-18 21:35 | disposition left against medical advice (07) ==
LOC: ED 21:18
DX: M79.662 Pain in left lower leg (principal)
CPT/HCPCS: 99281

== ENCOUNTER 2024-06-27 19:23 | Emergency (ER) | payer BC ==
[2024-06-27 19:32] VITALS: TEMP 97.1
[2024-06-27 20:05] LABS: Absolute Neutrophil Ct (ANC) 3.02 x10^3/uL (1.78-5.38); Basophil (Absolute #) 0.08 x10^3/uL (0.01-0.08); Eosinophil % 2.2 % (0.8-7.0); Eosinophil (Absolute #) 0.17 x10^3/uL (0.04-0.54); Hematocrit 45.5 % (40.1-51.0); Hemoglobin 15.4 g/dL (13.7-17.5); IMMATURE GRAN # 0.05 x10^3u/L (0.001-0.031); IMMATURE GRAN % 0.7 % (0.001-0.429); Lymphocyte (Absolute #) 3.62 x10^3/uL (1.32-3.57); Lymphocytes % 47.3 % (21.8-53.1); Mean Cell Volume 92.3 fL (79.0-92.2); Mean Corpuscular Hemoglobin 31.2 pg (25.7-32.2); Mean Corpuscular Hgb Concent. 33.8 g/dL (32.3-36.5); Mean Platelet Volume 10.3 fL (9.4-12.4); Monocyte (Absolute #) 0.71 x10^3/uL (0.30-0.82); Monocytes % 9.3 % (5.3-12.2); Neutrophil % 39.5 % (34.0-67.9); Platelet Count 233 x10^3/uL (163-337); Red Blood Count 4.93 x10^6/uL (4.63-6.08); Red Cell Distribution Width 12.6 % (11.6-14.4); White Blood Count 7.7 x10^3/uL (4.23-9.07)
--- NOTE | 2024-06-27 20:06 | ERPHSYRPT ---
- History of Present Illness Time Seen by Provider: 06/27/24 19:29 Source: patient, family Exam Limitations: no limitations Patient Subjective Stated Complaint: "I've been having some on and off shortness of breath and coughing for about a week and today it got more constant and I started having chest pains". Triage Nursing Assessment: Pt presents to ER with complaints of shortness of breath x 1 week that worsened today and became more constant with some chest pains that radiate into his back. Pt is alert and oriented x 3. Skin is pink, warm, and dry. Rates pain 5/10 scale. Respirations are easy at this time. Lungs are clear. Complains of dry cough. Intermittent nausea. Denies any fever, chills. Physician History: 28 years old male with history of anxiety/depression presented in the ER with intermittent episodes of shortness of breath with some chest pain for almost 1 week. Patient is unable to associate it with any aggravating or relieving factors. Last for few seconds and improves. Patient reports he has to take couple of deep breaths and his shortness of breath gets better. Reports mild dull aching pain at times with radiation to the shoulder blade area. It was getting more frequent today that is why decided to get attention. No history of coronary artery disease. Does have history of hypothyroid thyroidism. Allergies/Adverse Reactions: No Known Drug Allergies Allergy (Verified 06/27/24 19:32) Home Medications: Buspirone HCl 5 mg [Buspar 5 mg] 15 mg PO TID 09/17/23 [History] ALPRAZolam 0.25 MG [xanAX 0.25 MG] 0.25 mg PO TID PRN 12/27/23 [History] Non-Formulary Drug [Non-Formulary Item] 1 tab PO BID 12/27/23 [History] Propranolol HCl 20 mg PO TID 12/27/23 [History] Aripiprazole 10 mg [Abilify 10 MG] 10 mg PO HS 04/18/24 [History] Hx Tetanus, Diphtheria Vaccination/Date Given: Yes Hx Influenza Vaccination/Date Given: No Hx Pneumococcal Vaccination/Date Given: No Immunizations Up to Date: Yes Travel Risk - International Travel Have you traveled outside of the country in past 3 weeks: No - Emerging Infectious Disease Are you exhibiting symptoms associated with any current EIDs: Yes Symptoms: Shortness of Breath - Review of Systems Constitutional: No Symptoms Eyes: No Symptoms Ears, Nose, & Throat: No Symptoms Respiratory: Dyspnea Cardiac: Chest Pain Abdominal/Gastrointestinal: No Symptoms Genitourinary Symptoms: No Symptoms Musculoskeletal: No Symptoms Skin: No Symptoms Neurological: No Symptoms Psychological: Anxiety, Depression Endocrine: No Symptoms Hematologic/Lymphatic: No Symptoms Immunological/Allergic: No Symptoms - Past Medical History Pertinent Past Medical History: Yes Neurological History: No Pertinent History ENT History: No Pertinent History Cardiac History: Arrhythmia, Other Respiratory History: No Pertinent History Endocrine Medical History: Hyperthyroidism, Hypothyroidism Musculoskeletal History: No Pertinent History GI Medical History: No Pertinent History History: No Pertinent History Psycho-Social History: Anxiety, Depression Male Reproductive Disorders: No Pertinent History Other Medical History: electrocuted in 2021, heart murmur, HIGH HEART RATE - Past Surgical History Past Surgical History: No - Social History Smoking Status: Former smoker Exposure to second hand smoke: No Drug Use: none - Social Determinants of Health Will the patient participate in the screening: Yes Do you worry about a steady place to live?: No Do you have any problems with any of the following?: No known problems In the past 12 months,have you had to go without utilities?: No Transportation Issues: No Has anyone in your support network made you feel unsafe?: No Have you or anyone in your house had to go w/o enough food: No - Nursing Vital Signs Nursing Vital Signs: Initial Vital Signs Temperature 97.1 F 06/27/24 19:25 Pulse Rate 75 06/27/24 19:25 Respiratory Rate 16 06/27/24 19:25 Blood Pressure 122/79 06/27/24 19:25 O2 Sat by Pulse Oximetry 99 06/27/24 19:25 Pain Scale Pain Intensity 0 - Physical Exam General Appearance: no apparent distress, alert, anxiety Eye Exam: PERRL/EOMI Ears, Nose, Throat Exam: hearing grossly normal Neck Exam: normal inspection, non-tender, supple, full range of motion Respiratory Exam: normal breath sounds, lungs clear Cardiovascular/Chest Exam: normal heart sounds, regular rate/rhythm Abdominal/Gastrointestinal Exam: soft, No tenderness Extremity Exam: non-tender, normal range of motion Neurologic Exam: alert, oriented x 3, cooperative Skin Exam: normal color SpO2 Interpretation: normal SpO2: 99 O2 Delivery: Room Air - Course EKG Interpreted by Me: RATE, Sinus Rhythm, NORMAL AXIS, NORMAL INTERVALS, NORMAL QRS Ordered Tests: Active Orders 24 hr Category Date Time 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 Care 06/27/24 19:41 Active EKG-ER Only STAT Care 06/27/24 19:38 Active CHEST 1 VIEW (PORTABLE) Stat Exams 06/27/24 21:07 Taken CBC W DIFF Stat Lab 06/27/24 20:04 Completed CMP Stat Lab 06/27/24 20:04 Completed D-DIMER QUANTITATIVE Stat Lab 06/27/24 20:04 Completed MAGNESIUM Stat Lab 06/27/24 20:04 Completed TROPONIN Q4H Lab 06/27/24 20:04 Completed TROPONIN Q4H Lab 06/27/24 23:45 Ordered TROPONIN Q4H Lab 06/28/24 03:45 Ordered TSH [TSH, 3RD Generation] Stat Lab 06/27/24 20:04 Completed Medication Summary Discontinued Medications Generic Name Dose Route Start Last Admin Trade Name Freq PRN Reason Stop Dose Admin Aspirin 324 mg 06/27/24 20:54 06/27/24 21:06 Aspirin 81 Mg Tab.Chew PO 06/27/24 20:55 324 mg STAT ONE Administration Aspirin Confirm 06/27/24 21:02 Aspirin 81 Mg Tab.Chew Administered 06/27/24 21:03 Dose 324 mg .ROUTE .STK-MED ONE Lab/Rad Data: Laboratory Result Diagrams 06/27/24 20:04 06/27/24 20:04 Laboratory Results 06/27/24 06/27/24 06/27/24 Range/Units 20:04 20:04 20:04 WBC (4.23-9.07) x10^3/uL RBC (4.63-6.08) x10^6/uL Hgb (13.7-17.5) g/dL Hct (40.1-51.0) % MCV (79.0-92.2) fL MCH (25.7-32.2) pg MCHC (32.3-36.5) g/dL RDW (11.6-14.4) % Plt Count (163-337) x10^3/uL MPV (9.4-12.4) fL Gran % (34.0-67.9) % Immature Gran % (Auto) (0.001-0.429) % Nucleat RBC Rel Count (0.00-0.2) % Eos # (Auto) (0.04-0.54) x10^3/uL Immature Gran # (Auto) (0.001-0.031) x10^3u/L Absolute Lymphs (auto) (1.32-3.57) x10^3/uL Absolute Monos (auto) (0.30-0.82) x10^3/uL Absolute Nucleated RBC (0.00-0.012) x10^3u/L Lymphocytes % (21.8-53.1) % Monocytes % (5.3-12.2) % Eosinophils % (0.8-7.0) % Basophils % (0.2-1.2) % Absolute Granulocytes (1.78-5.38) x10^3/uL Basophils # (0.01-0.08) x10^3/uL D-Dimer < 0.19 (0.0-0.50) mg/L Sodium (135-145) mmol/L Potassium (3.5-5.1) mmol/L Chloride (98-107) mmol/L Carbon Dioxide (22-30) mmol/L Anion Gap (5-15) MEQ/L BUN (9-20) mg/dL Creatinine (0.66-1.25) mg/dL Estimated GFR ML/MIN Glucose (74-106) mg/dL Calcium (8.4-10.2) mg/dL Magnesium (1.6-2.3) mg/dL Total Bilirubin (0.2-1.3) mg/dL AST (17-59) U/L ALT (0-50) U/L Alkaline Phosphatase (38-126) U/L Troponin I < 0.012 (0.000-0.033) ng/mL Serum Total Protein (6.3-8.2) g/dL Albumin (3.5-5.0) g/dL TSH 3rd Generation 45.435 H (0.470-4.680) mIU/L 06/27/24 06/27/24 Range/Units 20:04 20:04 WBC 7.7 (4.23-9.07) x10^3/uL RBC 4.93 (4.63-6.08) x10^6/uL Hgb 15.4 (13.7-17.5) g/dL Hct 45.5 (40.1-51.0) % MCV 92.3 H (79.0-92.2) fL MCH 31.2 (25.7-32.2) pg MCHC 33.8 (32.3-36.5) g/dL RDW 12.6 (11.6-14.4) % Plt Count 233 (163-337) x10^3/uL MPV 10.3 (9.4-12.4) fL Gran % 39.5 (34.0-67.9) % Immature Gran % (Auto) 0.7 H (0.001-0.429) % Nucleat RBC Rel Count 0.0 (0.00-0.2) % Eos # (Auto) 0.17 (0.04-0.54) x10^3/uL Immature Gran # (Auto) 0.05 H (0.001-0.031) x10^3u/L Absolute Lymphs (auto) 3.62 H (1.32-3.57) x10^3/uL Absolute Monos (auto) 0.71 (0.30-0.82) x10^3/uL Absolute Nucleated RBC 0.00 (0.00-0.012) x10^3u/L Lymphocytes % 47.3 (21.8-53.1) % Monocytes % 9.3 (5.3-12.2) % Eosinophils % 2.2 (0.8-7.0) % Basophils % 1.0 (0.2-1.2) % Absolute Granulocytes 3.02 (1.78-5.38) x10^3/uL Basophils # 0.08 (0.01-0.08) x10^3/uL D-Dimer (0.0-0.50) mg/L Sodium 144 (135-145) mmol/L Potassium 4.4 (3.5-5.1) mmol/L Chloride 103 (98-107) mmol/L Carbon Dioxide 28 (22-30) mmol/L Anion Gap 17.0 H (5-15) MEQ/L BUN 10 (9-20) mg/dL Creatinine 1.01 (0.66-1.25) mg/dL Estimated GFR 103.9 ML/MIN Glucose 84 (74-106) mg/dL Calcium 9.6 (8.4-10.2) mg/dL Magnesium 1.9 (1.6-2.3) mg/dL Total Bilirubin 0.60 (0.2-1.3) mg/dL AST 33 (17-59) U/L ALT 24 (0-50) U/L Alkaline Phosphatase 86 (38-126) U/L Troponin I (0.000-0.033) ng/mL Serum Total Protein 7.5 (6.3-8.2) g/dL Albumin 4.7 (3.5-5.0) g/dL TSH 3rd Generation (0.470-4.680) mIU/L - Progress Progress: improved, re-examined Air Movement: good Progress Note: 06/27/24 21:14 Differential diagnosis include but not limited to: ACS, pneumonia, pneumothorax, bronchitis, pulmonary embolism, dissection 28 years old with history of anxiety, thyroid issues on methimazole is evaluated in the ER for intermittent chest pain and difficulty breathing which lasts for a few seconds and improves on its own. Patient is not in any distress. EKG is normal sinus rhythm with no acute ischemic changes interpreted by me, Chest x-ray is negative for any acute cardiopulmonary findings interpreted by me, official final read is pending Normal white count, chemistries unremarkable, patient is given aspirin. Patient has negative troponin and D-dimers. Patient is a low heart score and with his symptoms going on for almost 1 week, do not think patient needs trending of cardiac enzymes and 1 negative rules without. Patient pain and shortness of breath is not very typical for ACS. Could have some element of anxiety as well. 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 Recommended outpatient follow-up with primary care. Discussed signs symptoms of worsening needing return to ER which she seems understanding. Complexity of problems addressed: Moderate acute Complexity of data reviewed/analyzed: Moderate Risk of complication, low Blood Culture(s) Obtained: No Antibiotics given: No Counseled pt/family regarding: lab results, diagnosis, need for follow-up, rad results Medical Desision Making - Independent Historian Additional History obtained from: Mother - Diagnostic Testing Diagnostic test were ordered, analyzed, and reviewed by me: Yes Radiological Interpretation: Interpreted by me - Risk of complications The pt has a mod risk of morbidity or mortality based on: Need for prescription drug management - Departure Departure Disposition: Home Clinical Impression: Atypical chest pain, Anxiety, Hypothyroidism (acquired) Condition: Stable Critical Care Time: No Referrals: CARLOS JOHN MD [Primary Care Provider, [facility]] - Follow up with PCP 1 day Instructions: Chest pain - Discharge instructions Additional Instructions: Take Tylenol/ibuprofen as needed. Follow-up with primary care for reevaluation and may need referral for cardiology if continues to have chest pains. Also talk to your restorer lace and textiles to adjust the dose of methimazole return to ER for worsening chest pains/difficulty breathing or if develop fever chills etc.
[2024-06-27 20:25] LABS: ALBUMIN 4.7 g/dL (3.5-5.0); BILIRUBIN,TOTAL 0.6 mg/dL (0.2-1.3); Calcium 9.6 mg/dL (8.4-10.2); Creatinine 1 1.01 mg/dL (0.66-1.25); EST GLOMERULAR FILTRATION RATE 103.9 ML/MIN; MAGNESIUM 1.9 mg/dL (1.6-2.3); Potassium 4.4 mmol/L (3.5-5.1); Total Protein 7.5 g/dL (6.3-8.2)
[2024-06-27] MEDS ORDERED: BABY ASPIRIN 81 MG CHEW ONE (21:02)
[2024-06-27] MEDS: BABY ASPIRIN 81 MG CHEW PO ONE (21:06)
[2024-06-27 21:34] VITALS: BP 113/72; PULSE 78; RESP 21; O2SAT 97
--- NOTE | 2024-06-28 09:24 | XRAY ---
Indication: Chest pain. Comparison: December 27, 2023 Portable chest again demonstrates normal heart, lungs, and bony thorax.
== END 2024-06-27 21:40 | disposition home or self-care (01) ==
LOC: ED 19:23
DX: R07.89 Other chest pain (principal); F41.9 Anxiety disorder, unspecified; E03.9 Hypothyroidism, unspecified; R06.02 Shortness of breath; Z79.899 Other long term (current) drug therapy
CPT/HCPCS: 36415; 71045; 80053; 83735; 84443; 84484; 85025; 85379; 93005; 93041; 99284; 99285; A9270-GY